=== PATIENT | female | born 1985 | race Caucasian/White ===

== ENCOUNTER → 2016-03-05 | Day surgery (SDC) | payer OTHER ==
[2016-03-02 12:01] VITALS: BMI 25.2
[~2016-03-05] MED LIST: LACTATED RINGERS 1,000 ML IV SCH; LIDOCAINE 1% 20 ML VIAL (10MG/ML) FOR IV START INTRADERMA PRN; LIDOCAINE 1% INJ 10MG/ML (20 ML MDV) ONE; PROPOFOL 10 MG/ML 20 ML VIAL IV ONE
[2016-03-05 09:14] VITALS: BP 116/71; PULSE 69; RESP 16; TEMP 97.8
--- NOTE | 2016-03-05 10:20 | P.PCN ---
Date of Procedure: 03/05/16 Procedure(s) Performed: Procedure: Esophagogastroduodenoscopy and biopsy. Preoperative diagnosis: Reflux symptoms and nausea. Postoperative diagnosis: Mild gastritis. Preparation and sedation: Was provided by anesthesia. Brief clinical history: The patient is a 30-year-old female who I have evaluated in the office last month regarding severe heartburn that she had for a month or so that was not responding to acid suppressive therapy. In addition she has been having abdominal cramps, nausea and vomiting and has lost 20 pounds since a flu-like illness she had in October that lasted around 2 weeks. This evaluation is to assess for peptic ulcer disease, complicated reflux disease or other pathology. Procedure: With the patient on her left lateral decubitus position and after informed consent and adequate sedation, I passed the Olympus-GIF 160 video upper endoscope through the cricopharyngeus down the esophagus. GE junction was around 39-40 Demeter from the incisors. There was no definite hiatal hernia. The esophagus did not show any evidence of esophagitis or complicated reflux disease. The endoscope was then passed into the stomach which was insufflated with air and inspected in detail including the retroflex view in the cardia. There was some mottling and erythema in the antrum but no ulcers or erosions. Pyloric channel, duodenal bulb, post bulbar area and descending duodenum appeared within normal limits. Because of her symptoms, I obtained multiple biopsies from the duodenum, antrum and esophagus then the endoscope was withdrawn. The patient tolerated the procedure well. Plan: The patient was reassured. Will await biopsy results, then make further plans based on her course and biopsy results. She will follow-up with you as planned and I will keep you updated on her progress.
== END ==
LOC: ORWHC2ENDO 08:43
DX: K29.50 Unspecified chronic gastritis without bleeding (principal); K20.9 Esophagitis, unspecified; Z79.3 Long term (current) use of hormonal contraceptives; Z88.8 Allergy status to other drugs, medicaments and biological substances
CPT/HCPCS: 81025; 88305; 88342; 43239; J2001; J2704; 99153

== ENCOUNTER → 2016-03-09 | Outpatient (CLI) | payer OTHER ==
--- NOTE | 2016-03-11 09:42 | MM ---
Reason for exam: screening (asymptomatic). History: Family history of breast cancer in paternal grandmother at age 80. Benign ultrasound-guided core biopsy of the left breast. Taking hormonal contraceptives for 15 years. Physical Findings: Nurse did not find any significant physical abnormalities on exam. MG Screening Mammo w CAD Bilateral CC and MLO view(s) were taken. There are scattered fibroglandular densities. There is no discrete abnormality. No significant changes when compared with prior studies. ASSESSMENT: Negative, BI-RAD 1 RECOMMENDATION: Routine screening mammogram of both breasts at age 41.
== END | disposition home or self-care (01) ==
LOC: RADMAMWWP 08:06
PROVIDERS: ATTEND Family Medicine
DX: Z12.31 Encounter for screening mammogram for malignant neoplasm of breast (principal)

== ENCOUNTER 2016-06-30 20:41 | Emergency (ER) | payer OTHER ==
[2016-06-30 20:49] VITALS: RESP 16; TEMP 98.3
[2016-06-30] MEDS ORDERED: IBUPROFEN 400 MG TAB PO STA (21:11)
[2016-06-30] MEDS ORDERED: SODIUM CHLORIDE 0.9% 1,000 ML IV ONE (21:12)
--- NOTE | 2016-06-30 21:15 | ED ---
Headache HPI - General Chief Complaint: Headache Stated Complaint: Facial numbness/tingling Time Seen by Provider: 06/30/16 20:50 Source: RN notes reviewed Mode of arrival: EMS Limitations: no limitations - History of Present Illness Initial Comments: Patient's 30-year-old female presents to the emergency room for evaluation. Patient states she began having a migraine headache on Wednesday that lasted about 8 hours. Patient states she took a bath and took a nap and felt better. Patient states states patient developed another migraine on the left side of her jehovah's witness. Patient states also having left ear pain. Patient states she's had a cough for the past 2 week that will not subside. Patient states her cough is non-productive. Patient denies shortness of breath. Patient denies nausea or vomiting. Patient denies photophobia or phonophobia. Patient denies recent trauma or injury to her head. Patient's is having 6 out of 10 headache. Patient denies changes in vision. Patient denies neck pain. Patient denies fevers or chills. - Related Data Home Medications Medication Instructions Recorded Confirmed Norgestimate-Ethinyl Estradiol 1 tab PO DAILY 11/07/15 06/30/16 [Ortho Tri-Cyclen 28 Tablet] Previous Rx's Medication Instructions Recorded Ciprofloxacin-Hc Otic Susp [Cipro 3 drops LEFT EAR BID 10 Days 06/30/16 Hc Otic Suspension] Allergies Allergy/AdvReac Type Severity Reaction Status Date / Time bupropion HCl Allergy Rash/Hives Verified 06/30/16 21:04 [From Wellbutrin] sertraline HCl [From Zoloft] Allergy Swelling Verified 06/30/16 21:04 Review of Systems ROS Statement: Those systems with pertinent positive or pertinent negative responses have been documented in the HPI. ROS Other: All systems not noted in ROS Statement are negative. Past Medical History Past Medical History: GERD/Reflux History of Any Multi-Drug Resistant Organisms: None Reported Additional Past Surgical History / Comment(s): left breast lumpectomy Past Anesthesia/Blood Transfusion Reactions: Previous Problems w/ Anesthesia Additional Past Anesthesia/Blood Transfusion Reaction / Comment(s): STATES " HARD TO WAKE UP" Past Psychological History: Anxiety Smoking Status: Never smoker Past Alcohol Use History: None Reported Past Drug Use History: None Reported - Past Family History Father Family Medical History: Cancer General Exam - General Exam Comments Initial Comments: Sitting in exam room, no acute distress. Limitations: no limitations General appearance: alert, in no apparent distress Head exam: Present: atraumatic, normocephalic, normal inspection Eye exam: Present: normal appearance ENT exam: Present: normal oropharynx, mucous membranes moist, normal external ear exam Expanded TM/Canal exam: Canal Tenderness: Left TM Neck exam: Present: normal inspection Respiratory exam: Present: normal lung sounds bilaterally. Absent: respiratory distress Cardiovascular Exam: Present: regular rate, normal rhythm, normal heart sounds Extremities exam: Present: normal inspection Back exam: Present: normal inspection Neurological exam: Present: alert, oriented X3, CN II-XII intact Psychiatric exam: Present: normal affect, normal mood Skin exam: Present: warm, dry, intact, normal color. Absent: rash Course Vital Signs 06/30/16 06/30/16 20:43 22:46 Temperature 98.3 F Pulse Rate 75 78 Respiratory 16 16 Rate Blood Pressure 123/67 104/54 O2 Sat by Pulse 99 97 Oximetry Medical Decision Making - Medical Decision Making Patient is a 30-year-old female presents emergency room for evaluation of headache, left ear pain and cough. Labs show no concerning findings. Chest x- ray negative for signs of pneumonia, pleural effusions or pneumothorax. Patient states her headache is improving with ibuprofen. Patient does have a tender left ear canal with erythema. Will treat patient for otitis externa. Advised patient to follow-up with primary care provider for reevaluation in one to 2 days. Patient states she understands everything that was discussed with her. Return parameters discussed. Case discussed with Dr. Mayen. - Lab Data Result diagrams: 06/30/16 21:31 Lab Results 06/30/16 06/30/16 Range/Units 21:31 21:31 WBC 8.5 (3.8-10.6) k/uL RBC 4.30 (3.80-5.40) m/uL Hgb 13.2 (11.4-16.0) gm/dL Hct 39.2 (34.0-46.0) % MCV 91.2 (80.0-100.0) fL MCH 30.7 (25.0-35.0) pg MCHC 33.7 (31.0-37.0) g/dL RDW 12.0 (11.5-15.5) % Plt Count 340 (150-450) k/uL Neutrophils % 57 % Lymphocytes % 31 % Monocytes % 6 % Eosinophils % 2 % Basophils % 1 % Neutrophils # 4.9 (1.3-7.7) k/uL Lymphocytes # 2.7 (1.0-4.8) k/uL Monocytes # 0.5 (0-1.0) k/uL Eosinophils # 0.1 (0-0.7) k/uL Basophils # 0.1 (0-0.2) k/uL Influenza Type A RNA Not Detected (Not Detectd) Influenza Type B (PCR) Not Detected (Not Detectd) - Radiology Data Radiology results: report reviewed, image reviewed Disposition Clinical Impression: Otitis externa, Headache Disposition: HOME SELF-CARE Condition: Good Instructions: Otitis Externa (ED) Additional Instructions: Apply drops as directed. Tylenol or Motrin as needed for headache. Please follow up with primary care provider in 1-2 days. If any new symptom arises or symptoms worsen, return to ER as soon as possible. Prescriptions: Ciprofloxacin-Hc Otic Susp [Cipro Hc Otic Suspension] 3 drops LEFT EAR BID 10 Days Referrals: Derik Bolaños Jr, DO [Primary Care Provider] - 1-2 days Time of Disposition: 22:32
[2016-06-30 21:46] LABS: Basophils # (A) 0.1 k/uL (0-0.2); Basophils % (A) 1 %; CH 30.7; CHCM 33.8; Eosinophils # (A) 0.1 k/uL (0-0.7); Eosinophils % (A) 2 %; HCT 39.2 % (34.0-46.0); HDW 2.16; HGB 13.2 gm/dL (11.4-16.0); Luc # (Auto) 0.26; Luc % (Auto) 3; Lymphocytes # (A) 2.7 k/uL (1.0-4.8); Lymphocytes % (A) 31 %; MCH 30.7 pg (25.0-35.0); MCHC 33.7 g/dL (31.0-37.0); MCV 91.2 fL (80.0-100.0); Mean Platelet Volume 6.6; Monocytes # (A) 0.5 k/uL (0-1.0); Monocytes % (A) 6 %; Neutrophils # (A) 4.9 k/uL (1.3-7.7); Neutrophils % (A) 57 %; WBC 8.5 k/uL (3.8-10.6); WBC (Perox) 8.04
--- NOTE | 2016-06-30 22:07 | XR ---
EXAMINATION TYPE: XR chest 2V DATE OF EXAM: 06/30/2016 9:40 PM COMPARISON: 05/08/2012 HISTORY: Cough TECHNIQUE: Frontal and lateral views of the chest are obtained. FINDINGS: Heart and mediastinum are normal. Lungs are clear. Diaphragm is normal. Bony thorax is int act. IMPRESSION: Normal chest. No change.
[2016-06-30 22:48] VITALS: BP 104/54; PULSE 78
== END 2016-06-30 22:50 | disposition home or self-care (01) ==
LOC: EC 20:41
DX: H60.92 Unspecified otitis externa, left ear (principal); R51 Headache; Z79.3 Long term (current) use of hormonal contraceptives; Z88.8 Allergy status to other drugs, medicaments and biological substances
CPT/HCPCS: 36415; 71020; 85025; 87502; 96360; 99284

== ENCOUNTER 2016-08-21 12:16 | Emergency (ER) | payer OTHER ==
[2016-08-21 12:24] VITALS: RESP 18
--- NOTE | 2016-08-21 12:49 | ED ---
Headache HPI - General Chief Complaint: Headache Stated Complaint: Headache Time Seen by Provider: 08/21/16 12:23 Source: RN notes reviewed Mode of arrival: EMS Limitations: no limitations - History of Present Illness Initial Comments: 31-year-old female presents to the emergency department with a chief complaint of migraines. Patient states she has been having migraines for the past 2 months. Patient states she's never had migraines before 2 months ago. Patient states they're mostly around the left side of her face and will shoot across to her jaw. Patient states sometimes on the right side of the face. Sometimes she has a tension-type headache with them as well. Patient states she has had nausea. Patient denies any visual disturbances. Patient states she was concerned due to her symptoms so she thought that she should be evaluated. There is no fever chills cough cold Raynaud's with this. Patient denies any neck pain with this. Patient states she does have headaches and she was in high school but she currently has not been having them. Patient denies any recent fever, chills, shortness of breath, chest pain, back pain, abdominal pain , nausea vomiting, numbness or tingling, dysuria or hematuria, constipation or diarrhea, visual changes, or any other current symptoms. - Related Data Home Medications Medication Instructions Recorded Confirmed Norgestimate-Ethinyl Estradiol 1 tab PO DAILY 11/07/15 08/21/16 [Ortho Tri-Cyclen 28 Tablet] Ibuprofen [Motrin] 200 mg PO Q6HR PRN 08/21/16 08/21/16 Allergies Allergy/AdvReac Type Severity Reaction Status Date / Time bupropion HCl Allergy Rash/Hives Verified 08/21/16 13:30 [From Wellbutrin] sertraline HCl [From Zoloft] Allergy Swelling Verified 08/21/16 13:30 Review of Systems ROS Statement: Those systems with pertinent positive or pertinent negative responses have been documented in the HPI. ROS Other: All systems not noted in ROS Statement are negative. Past Medical History Past Medical History: GERD/Reflux Additional Past Medical History / Comment(s): anxiety, migraines History of Any Multi-Drug Resistant Organisms: None Reported Past Surgical History: No Surgical Hx Reported Additional Past Surgical History / Comment(s): left breast lumpectomy Past Anesthesia/Blood Transfusion Reactions: Previous Problems w/ Anesthesia Additional Past Anesthesia/Blood Transfusion Reaction / Comment(s): STATES " HARD TO WAKE UP" Past Psychological History: Anxiety Smoking Status: Never smoker Past Alcohol Use History: None Reported Past Drug Use History: None Reported - Past Family History Father Family Medical History: Cancer General Exam - General Exam Comments Initial Comments: General: The patient is awake and alert, in no distress, and does not appear acutely ill. Eye: Pupils are equal, round and reactive to light, extra-ocular movements are intact; there is normal conjunctiva bilaterally. No signs of icterus. Ears, nose, mouth and throat: There are moist mucous membranes and no oral lesions. Neck: The neck is supple, there is no tenderness. Cardiovascular: There is a regular rate and rhythm. No murmur, rub or gallop is appreciated. Respiratory: Lungs are clear to auscultation, respirations are non-labored, breath sounds are equal. No wheezes, stridor, rales, or rhonchi. Gastrointestinal: Soft, non-distended, non-tender abdomen without masses or organomegaly noted. There is no rebound or guarding present. No CVA tenderness. Bowel sounds are unremarkable. Back: There is no tenderness to palpation in the midline. There is no obvious deformity. No rashes noted. Musculoskeletal: Normal ROM, no tenderness, There is no pedal edema. There is no calf tenderness or swelling. Sensation intact. Pulses equal bilaterally 2+. Neurological: CN II-XII intact, There are no obvious motor or sensory deficits. Coordination appears grossly intact. Speech is normal. Skin: Skin is warm and dry and no rashes or lesions are noted. Psychiatric: Cooperative, appropriate mood & affect, normal judgment. Limitations: no limitations Course Vital Signs 08/21/16 08/21/16 12:20 13:28 Temperature 98.2 F Pulse Rate 75 100 Respiratory 18 18 Rate Blood Pressure 111/62 119/75 O2 Sat by Pulse 100 95 Oximetry Medical Decision Making - Medical Decision Making 31-year-old female presents for headache Headaches that she has had in the past. Patient CT is reviewed and negative. At this time we discussed close follow-up with neurology and she was reevaluated states she is feeling better. At this time we did discuss return parameters all of her questions. She stated that she understood and she is in agreement with this plan. She will be discharged. - Lab Data Result diagrams: 08/21/16 13:25 08/21/16 13:25 Lab Results 08/21/16 08/21/16 Range/Units 13:25 13:25 WBC 6.5 (3.8-10.6) k/uL RBC 4.03 (3.80-5.40) m/uL Hgb 12.6 (11.4-16.0) gm/dL Hct 36.4 (34.0-46.0) % MCV 90.3 (80.0-100.0) fL MCH 31.3 (25.0-35.0) pg MCHC 34.6 (31.0-37.0) g/dL RDW 12.3 (11.5-15.5) % Plt Count 269 (150-450) k/uL Neutrophils % 66 % Lymphocytes % 26 % Monocytes % 5 % Eosinophils % 2 % Basophils % 1 % Neutrophils # 4.3 (1.3-7.7) k/uL Lymphocytes # 1.7 (1.0-4.8) k/uL Monocytes # 0.3 (0-1.0) k/uL Eosinophils # 0.1 (0-0.7) k/uL Basophils # 0.0 (0-0.2) k/uL Sodium 141 (137-145) mmol/L Potassium 4.4 (3.5-5.1) mmol/L Chloride 107 (98-107) mmol/L Carbon Dioxide 26 (22-30) mmol/L Anion Gap 8 mmol/L BUN 12 (7-17) mg/dL Creatinine 0.73 (0.52-1.04) mg/dL Est GFR (MDRD) Af Amer >60 (>60 ml/min/1.73 sqM) Est GFR (MDRD) Non-Af >60 (>60 ml/min/1.73 sqM) Glucose 104 H (74-99) mg/dL Calcium 9.3 (8.4-10.2) mg/dL Total Bilirubin 0.5 (0.2-1.3) mg/dL AST 18 (14-36) U/L ALT 31 (9-52) U/L Alkaline Phosphatase 49 (38-126) U/L Total Protein 7.0 (6.3-8.2) g/dL Albumin 4.0 (3.5-5.0) g/dL Disposition Clinical Impression: Headache Disposition: HOME SELF-CARE Condition: Stable Instructions: Acute Headache (ED) Additional Instructions: Please use medication as discussed. Please follow up with family doctor if symptoms have not improved over the next two days. Please return to the emergency room if your symptoms increase or worsen or for any other concerns. Referrals: Derik Bolaños Jr, DO [Primary Care Provider] - 1-2 days Thi Haynes MD [STAFF PHYSICIAN] - 1-2 days Time of Disposition: 14:22
[2016-08-21] MEDS ORDERED: METOCLOPRAMIDE 5 MG/ML 2 ML VIAL IVP STA (12:51)
[2016-08-21] MEDS ORDERED: SODIUM CHLORIDE 0.9% 1,000 ML IV STA (12:51)
[2016-08-21] MEDS ORDERED: diphenhydrAMINE 50 MG/ML 1 ML VIAL IVP STA (12:51)
[2016-08-21 13:37] LABS: Basophils % (A) 1 %; CH 30.4; CHCM 33.8; Eosinophils # (A) 0.1 k/uL (0-0.7); Eosinophils % (A) 2 %; HCT 36.4 % (34.0-46.0); HDW 2.05; HGB 12.6 gm/dL (11.4-16.0); Luc # (Auto) 0.09; Luc % (Auto) 1; Lymphocytes # (A) 1.7 k/uL (1.0-4.8); Lymphocytes % (A) 26 %; MCH 31.3 pg (25.0-35.0); MCHC 34.6 g/dL (31.0-37.0); MCV 90.3 fL (80.0-100.0); Monocytes # (A) 0.3 k/uL (0-1.0); Monocytes % (A) 5 %; Neutrophils # (A) 4.3 k/uL (1.3-7.7); Neutrophils % (A) 66 %; RBC 4.03 m/uL (3.80-5.40); RDW 12.3 % (11.5-15.5); WBC 6.5 k/uL (3.8-10.6)
[2016-08-21 13:47] LABS: ALT 31 U/L (9-52); AST 18 U/L (14-36); Alkaline Phosphatase 49 U/L (38-126); Anion Gap 8 mmol/L; Blood Urea Nitrogen 12 mg/dL (7-17); Calcium 9.3 mg/dL (8.4-10.2); Carbon Dioxide 26 mmol/L (22-30); Chloride 107 mmol/L (98-107); Glucose 104 mg/dL (74-99); Non-African American GFR(MDRD) >60 (>60 ml/min/1.73 sqM); Potassium 4.4 mmol/L (3.5-5.1); Sodium 141 mmol/L (137-145); Total Bilirubin 0.5 mg/dL (0.2-1.3)
--- NOTE | 2016-08-21 13:56 | CT ---
EXAMINATION TYPE: CT brain wo con DATE OF EXAM: 08/21/2016 COMPARISON: NONE INDICATION: Headaches DLP: 845.8 mGycm, Automated exposure control for dose reduction was used. CONTRAST: None CT of the brain is performed utilizing 3 mm thick sections through the posterior fossa and 3 mm thick sections through the remaining calvarium. Study is performed within 24 hours of arrival to the hosp [facility]. No abnormal hyperdensity is present to suggest an acute intracranial hemorrhage. No mass lesion is evident. No acute infarcts are evident. Ventricles and sulci are appropriate for the patient age. Paranasal sinuses and mastoid air cells within the [id number] are clear. IMPRESSIONS: 1. Normal CT Brain
[2016-08-21] MEDS ORDERED: KETOROLAC 30 MG/ML 1 ML VIAL IVP STA (14:24)
[2016-08-21 14:42] VITALS: BP 120/67; PULSE 72; TEMP 98
== END 2016-08-21 14:42 | disposition home or self-care (01) ==
LOC: EC 12:16
DX: R51 Headache (principal); R11.0 Nausea; Z86.69 Personal history of other diseases of the nervous system and sense organs; Z79.3 Long term (current) use of hormonal contraceptives; Z88.8 Allergy status to other drugs, medicaments and biological substances
CPT/HCPCS: 99284; 96374; 96375 ×2; 96361; 36415; 80053; 85025; 70450; J1200; J2765; J1885